=== PATIENT | male | born 1955 | race Two or more races ===

== ENCOUNTER 2021-09-02 11:48 | Emergency (ER) | payer OTHER ==
[~2021-09-02] VITALS: Ht 170.2 cm; Wt 50.8 kg
[~2021-09-02 11:48] MED LIST: GLUCOTROL10 MG
[2021-09-02] MEDS ORDERED: JARDIANCE10 MG PO (12:02)
== END 2021-09-02 14:33 | disposition home or self-care (01) ==
LOC: ER 11:48
DX: U07.1 COVID-19 (principal); Z88.6 Allergy status to analgesic agent; Z88.8 Allergy status to other drugs, medicaments and biological substances; Z91.013 Allergy to seafood; E11.9 Type 2 diabetes mellitus without complications; Z79.899 Other long term (current) drug therapy

== ENCOUNTER 2021-09-06 09:54 | Outpatient (CLI) | payer OTHER ==
[~2021-09-06 09:54] MED LIST changes: +JARDIANCE10 MG PO
== END 2021-09-06 10:40 | disposition home or self-care (01) ==
LOC: ASH CLINIC 09:54
PROVIDERS: ATTEND General Practice
DX: Z23 Encounter for immunization (principal); U07.1 COVID-19